=== PATIENT | male | born 1955 | race Caucasian/White ===

== ENCOUNTER → 2019-02-22 | Outpatient (CLI) | payer BC ==
[2019-02-22 17:29] LABS: Anisocytosis Slight; Basophils # (A) 0.1 k/uL (0-0.2); Basophils % (A) 2 %; Eosinophils # (A) 0.3 k/uL (0-0.7); Eosinophils % (A) 3 %; HCT 42.1 % (39.0-53.0); HGB 12.8 gm/dL (13.0-17.5); Hypochromasia Moderate; Lymphocytes # (A) 1.4 k/uL (1.0-4.8); Lymphocytes % (A) 16 %; MCH 22.5 pg (25.0-35.0); MCHC 30.5 g/dL (31.0-37.0); MCV 73.7 fL (80.0-100.0); Mean Platelet Volume 8.2; Microcytosis Moderate; Monocytes # (A) 0.6 k/uL (0-1.0); Monocytes % (A) 7 %; Neutrophils # (A) 6.2 k/uL (1.3-7.7); Neutrophils % (A) 71 %; Platelet Count 681 k/uL (150-450); Poikilocytosis Slight; RBC 5.71 m/uL (4.30-5.90); RDW 16.3 % (11.5-15.5); WBC 8.8 k/uL (3.8-10.6)
[2019-02-22 20:28] LABS: Erythrocyte Sedimentation Rate 8 mm/hr (0-15)
[2019-02-23 00:12] LABS: African American GFR (CKD) 83.5 (60.0-200.0); Albumin 4.4 g/dL (3.80-4.90); Albumin/Globulin Ratio 1.52 (1.60-3.17); BUN/Creat Ratio 15.45 Ratio (12.00-20.00); C Reactive Protein 0.4 mg/dL (0.0-0.8); Calcium 9.4 mg/dL (8.7-10.3); Globulin 2.9 g/dL (1.6-3.3); Potassium 4.3 mmol/L (3.5-5.5); Total Bilirubin 0.2 mg/dL (0.3-1.2); Total Protein 7.3 g/dL (6.2-8.2)
[2019-02-23 00:57] LABS: Rheumatoid Factor 89 IU/mL (0-15)
== END | disposition home or self-care (01) ==
LOC: LABWHC1 17:04
PROVIDERS: ATTEND Internal Medicine Rheumatology
DX: D47.3 Essential (hemorrhagic) thrombocythemia (principal); M35.8 Other specified systemic involvement of connective tissue; D47.1 Chronic myeloproliferative disease; D45 Polycythemia vera; R77.1 Abnormality of globulin; R76.8 Other specified abnormal immunological findings in serum; Z15.89 Genetic susceptibility to other disease; Z51.81 Encounter for therapeutic drug level monitoring; Z79.899 Other long term (current) drug therapy
CPT/HCPCS: 36415; 80053; 82784; 85025; 85652; 86140; 86160; 86235; 86431

== ENCOUNTER → 2019-03-30 | Outpatient (CLI) | payer BC ==
[2019-03-30 16:16] LABS: Anisocytosis Slight; HCT 46.4 % (39.0-53.0); HGB 14.3 gm/dL (13.0-17.5); Hypochromasia Marked; MCH 21.4 pg (25.0-35.0); MCHC 30.8 g/dL (31.0-37.0); MCV 69.5 fL (80.0-100.0); Mean Platelet Volume 7.6; Microcytosis Marked; Platelet Count 643 k/uL (150-450); Poikilocytosis Slight; RBC 6.67 m/uL (4.30-5.90); RDW 16.6 % (11.5-15.5); WBC 8.5 k/uL (3.8-10.6)
[2019-03-30 16:25] LABS: Potassium 4.8 mmol/L (3.5-5.1)
== END | disposition home or self-care (01) ==
LOC: LABPAT 15:31
PROVIDERS: ATTEND Internal Medicine Interventional Cardiology
DX: Z01.812 Encounter for preprocedural laboratory examination (principal); R06.02 Shortness of breath; R07.9 Chest pain, unspecified
CPT/HCPCS: 36415; 80051; 82565; 84520; 85027

== ENCOUNTER → 2019-04-02 | Day surgery (SDC) | payer BC ==
[2019-03-31 17:37] VITALS: BMI 28.8
[~2019-04-02] MED LIST: ALPRAZolam 0.25 MG TAB PO PRN; ASPIRIN 325 MG TAB PO ONE; HEPARIN SODIUM 1,000 UN/ML (10ML VL) IV ONE; IOPAMIDOL-370 125ML BTL INJ ONE; LIDOCAINE 1% INJ 10MG/ML (20 ML MDV) SQ ONE; MIDAZOLAM (PF) 2 MG/2 ML VIAL IV ONE; RX INFO: IV CONTRAST WAS GIVEN 1 EACH MISC MISCELLANE PRN; SODIUM CHLORIDE 0.9% 1,000 ML IV SCH; SODIUM CHLORIDE 0.9% 1,000 ML in EMPTY BAG 1 BAG IV ONE; VERAPAMIL SYRINGE (5 MG/10 ML) INTRAARTER ONE; fentaNYL (PF) 50 MCG/ML 2 ML AMP IVP ONE
[2019-04-02 06:57] VITALS: RESP 18; TEMP 98.3
--- NOTE | 2019-04-02 11:07 | CC ---
CARDIAC CATHETERIZATION REPORT DATE OF SERVICE: April 02, 2019 PERFORMING PHYSICIAN: Caesar Salvador MD, early childhood. PROCEDURE PERFORMED: 1. Selective right and left coronary angiogram. 2. Left heart catheterization. INDICATION: This is a pleasant 64-year-old gentleman with history of hypertension and dyslipidemia and family history of CAD, was experiencing chest discomfort with exertion concerning for severe artery disease. Because of that, heart catheterization was advised. APPROACH: Right radial artery. COMPLICATION: None. LEVEL OF SEDATION: Moderate with sedation length of 10 minutes. PROCEDURE DESCRIPTION: After obtaining an informed consent, the patient was brought to the cardiac lab director. The right radial artery was cannulated using micropuncture technique, the micropuncture wire passed easily then I placed a 6-Occitan sheath in the right radial artery. After that I gave the patient 6000 units of heparin IV and 2 mg of verapamil IA. Subsequently selective right and left coronary angiogram performed using JR4 and JL3.5 catheters. Left heart catheterization was performed using pigtail catheter. The procedure was completed without any complication. SELECTIVE CORONARY ANGIOGRAM: 1. The right coronary artery is a large caliber vessel and it is a dominant vessel. The RCA is angiographically normal it distally bifurcates into PDA and PLV branches, both appeared to be angiographically normal. 2. The left main is angiographically normal. It bifurcates into the left circumflex and left anterior descending artery. 3. The left circumflex is a large caliber vessel. It is a dominant vessel and appeared to be angiographically normal. 4. The LAD: The proximal LAD is normal and gives rise into a large diagonal branch which seems to be normal. The mid LAD has a lesion appeared to be in the range of 40% to 50% only. The LAD distally appeared to be normal. HEMODYNAMICS: The left ventricular end-diastolic pressure was about 10 mmHg without significant gradient across the aortic valve. CONCLUSION: Intermediate nonobstructive disease involving the mid LAD. POSTPROCEDURE MANAGEMENT: 1. Medical treatment. 2. Follow up with the patient. MMODL / IJN: [id number] /
[2019-04-02 13:22] VITALS: BP 117/71; PULSE 76
== END ==
LOC: CATHCVL 06:22
PROVIDERS: ATTEND Internal Medicine Interventional Cardiology
DX: I25.110 Atherosclerotic heart disease of native coronary artery with unstable angina pectoris (principal); I10 Essential (primary) hypertension; E78.5 Hyperlipidemia, unspecified; Z82.49 Family history of ischemic heart disease and other diseases of the circulatory system; Z79.899 Other long term (current) drug therapy
CPT/HCPCS: 93458; C1769; C1894; J2001; J3010; J1644; Q9967; J2250

== ENCOUNTER 2021-03-06 10:20 | Day surgery (SDC) | payer BC ==
[2021-03-02 08:51] VITALS: BMI 29.2
[2021-03-06] MEDS ORDERED: LACTATED RINGERS 1,000 ML IV ONE ×2 (10:44)
[2021-03-06] MEDS ORDERED: PROPOFOL 10 MG/ML 20 ML VIAL IV ONE (10:46)
--- NOTE | 2021-03-06 10:49 | P.GSHP ---
History of Present Illness H&P Date: 03/06/21 Chief Complaint: Colon cancer screening Patient here today for colonoscopy. Last colonoscopy over 20 years ago. No bowel complaints. No family history of colon cancer. Past Medical History Past Medical History: Myocardial Infarction (NH), Rheumatoid Arthritis (RA) Additional Past Medical History / Comment(s): LEUKEMIA,Lupus Last Myocardial Infarction Date:: yrs ago History of Any Multi-Drug Resistant Organisms: None Reported Past Surgical History: Hernia Repair Additional Past Surgical History / Comment(s): double hernia repair Past Anesthesia/Blood Transfusion Reactions: No Reported Reaction Smoking Status: Former smoker - Past Family History Father Family Medical History: Congestive Heart Failure (CHF), Diabetes Mellitus, Hyperlipidemia Mother Additional Family Medical History / Comment(s): PARKINSON Sister(s) Additional Family Medical History / Comment(s): PARKINSON Medications and Allergies Home Medications Medication Instructions Recorded Confirmed Type Aspirin EC [Ecotrin Low Dose] 81 mg PO DAILY 05/07/16 03/02/21 History Hydroxychloroquine Sulfate 200 mg PO DAILY 03/31/19 03/02/21 History [Plaquenil] Metoprolol Tartrate [Lopressor] 25 mg PO HS 03/31/19 03/02/21 History Cholecalciferol [Vitamin D3 (25 25 mcg PO DAILY 03/02/21 03/02/21 History Mcg = 1000 Iu)] Ruxolitinib Phosphate [Jakafi] 20 mg PO BID 03/02/21 03/02/21 History Allergies Allergy/AdvReac Type Severity Reaction Status Date / Time No Known Allergies Allergy Verified 03/06/21 10:36 Surgical - Exam Vital Signs Temp Pulse Resp BP Pulse Ox 98.0 F 104 H 18 137/82 95 03/06/21 10:35 03/06/21 10:35 03/06/21 10:35 03/06/21 10:35 03/06/21 10:35 Physical exam: General: Well-developed, well-nourished HEENT: Normocephalic, sclerae nonicteric Abdomen: Nontender, nondistended Extremities: No edema Neuro: Alert and oriented Assessment and Plan (1) Colon cancer screening Narrative/Plan: Will proceed with colonoscopy Current Visit: Yes Status: Acute Code(s): Z12.11 - ENCOUNTER FOR SCREENING FOR MALIGNANT NEOPLASM OF COLON SNOMED Code(s): 942336602
--- NOTE | 2021-03-06 11:00 | P.PCN ---
Date of Procedure: 03/06/21 Procedure(s) Performed: PREOPERATIVE DIAGNOSIS: Colon cancer screening POSTOPERATIVE DIAGNOSIS: Diverticulosis PROCEDURE: Colonoscopy ANESTHESIA: MAC SURGEON: Toro Crisostomo M.D. SPECIMENS: None ENDOSCOPIC PROCEDURE: The patient was placed on the endoscopy table in the left decubitus position. The Olympus colonoscope was inserted into the anus and passed under direct visualization to the base of the cecum. The appendiceal orifice was visualized. From that point the scope was slowly withdrawn inspe cting all surfaces carefully. There were no neoplastic inflammatory or polypoid lesions throughout the cecum, ascending, transverse, descending, sigmoid and rectum. There was moderate left-sided diverticulosis noted. Digital rectal examination was normal. The patient was taken to the recovery room in stable condition per anesthesia guidelines. RECOMMENDATIONS: Resume diet. Follow-up colonoscopy in 10 years.
[2021-03-06 11:03] VITALS: TEMP 98
[2021-03-06 11:05] VITALS: RESP 16
[2021-03-06 11:28] VITALS: BP 131/87; PULSE 90
== END 2021-03-06 11:39 | disposition home or self-care (01) ==
LOC: ORWHC2ENDO 10:20
PROVIDERS: ATTEND Surgery
DX: Z12.11 Encounter for screening for malignant neoplasm of colon (principal); K57.90 Diverticulosis of intestine, part unspecified, without perforation or abscess without bleeding; M06.9 Rheumatoid arthritis, unspecified; Z87.891 Personal history of nicotine dependence; J45.909 Unspecified asthma, uncomplicated; I25.2 Old myocardial infarction; Z79.82 Long term (current) use of aspirin; Z79.899 Other long term (current) drug therapy
CPT/HCPCS: J2704; G0121; 45378

== ENCOUNTER → 2022-11-13 | Outpatient (CLI) | payer BC ==
--- NOTE | 2022-11-13 11:02 | CTL ---
EXAMINATION TYPE: CT Low Dose Lung DATE OF EXAM ORDERED: 11/13/2022 HISTORY: Long-term tobacco use. Lung cancer screening CT DLP: 131.[address] CTDI: 3.6 mGy Automated exposure control for dose reduction was used. SCREENING VISIT: Baseline COMPARISON: None TECHNIQUE: Low dose computed tomography scan was performed through the chest at 1 mm thick sections a nd reconstructed images in multiple planes at 1 mm and [address] DIAGNOSTIC QUALITY: Satisfactory FINDINGS: LUNG NODULES: None. LUNGS: COPD: Severity: Moderate Fibrosis: Severity: Mild in the lower lungs Lymph nodes: None Other findings: None RIGHT PLEURAL SPACE: Effusion: None Calcification: None Thickening: None Pneumothorax: None LEFT PLEURAL SPACE: Effusion: None Calcification: None Thickening: None Pneumothorax: None HEART: Heart Size: Normal Coronary Calcification: Mild to moderate Pericardial Effusion: None OTHER FINDINGS: Upper abdomen: Visualized portion of Liver is low dense relative to the spleen consistent with mild d iffuse fatty infiltration. There is partial visualization of thin-walled cyst presumed exophytic from the upper pole right kidney on the last axial images. Bony thorax: None Supraclavicular region: None Other: None IMPRESSION: At least moderate emphysematous change without suspicious pulmonary nodule CT LUNG RAD AND CT CHEST RECOMMENDATION: Lung-Rad 1 Negative: Continue annual screening with LDCT in 12 months. S Modifier (other clinically significant findings): None
== END | disposition home or self-care (01) ==
LOC: RADCTMAIN 09:48
PROVIDERS: ATTEND Internal Medicine Hematology & Oncology
DX: Z12.2 Encounter for screening for malignant neoplasm of respiratory organs (principal); J43.9 Emphysema, unspecified; Z87.891 Personal history of nicotine dependence
CPT/HCPCS: 71271

== ENCOUNTER → 2024-10-28 | Outpatient (CLI) | payer MEDICARE, OTHER ==
--- NOTE | 2024-10-29 19:26 | PE ---
EXAMINATION TYPE: PET CT fusion skull to thigh DATE OF EXAM: 10/28/2024 CLINICAL INDICATION:Male, 69 years old with history of R91.1 LUNG NODULE; TECHNIQUE: Following the intravenous administration of 11.97 mCi of F-18 FDG, whole body images are performed from the skull base to the Mid thigh. Images are reviewed on the computer in the coronal, axial, and sagittal planes. Reconstructed rotating images are created on independent workstation an d reviewed on the computer. A non-contrast CT is performed in conjunction with the PET scan. Glucos e level 97 mg/dL CT DLP: 694 mGycm, Automated exposure control for dose reduction was used. COMPARISON: CT 10/13/2024, PET/CT None, MRI: None FINDINGS: Mediastinal SUV mean is 2.4. Hepatic parenchyma SUV mean is 2.5. SKULL BASE AND NECK: Superficial left parotid gland lesion measuring up to Max SUV 7.4 measuring 9 mm. CHEST, MEDIASTINUM, AND HILAR REGION: Right upper lobe pulmonary nodule measuring 10 mm Max SUV 4.8. ABDOMEN AND PELVIS: Left retroperitoneal lymph node at the level of kidney measuring 8 mm Max SUV 6.0. MUSCULOSKELETAL STRUCTURES: No suspicious radiotracer activity. OTHER CT: Atherosclerosis of the coronary arteries. Calcified lesions of aortic valve are mild. Bilat eral renal cortical cysts. Right renal cortical cyst with thin high density probable calcified septat ion. Scattered colonic diverticula. Right lateral bladder diverticulum. Post surgical changes in the inguinal canals bilaterally with clips present. Atherosclerosis of the arterial vasculature. Moderate to severe emphysema changes. Right upper lungr 10 mm pulmonary nodule with increased metabolic activ ity IMPRESSION: 1. Right upper lobe pulmonary nodule concerning for malignancy. No evidence for metastatic disease a t this time. 2. 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 Attention follow-up imaging. Cons ider ultrasound evaluation. 3. Retroperitoneal lymph node within normal limits for size however has elevated FDG activity and is concerning for malignancy until proven otherwise. [facility], , 10/29/2024 7:24 PM
== END | disposition home or self-care (01) ==
LOC: RADPETMAIN 06:28
PROVIDERS: ATTEND Internal Medicine Hematology & Oncology
DX: R91.1 Solitary pulmonary nodule (principal); N32.3 Diverticulum of bladder; K57.30 Diverticulosis of large intestine without perforation or abscess without bleeding; N28.1 Cyst of kidney, acquired; I25.10 Atherosclerotic heart disease of native coronary artery without angina pectoris
CPT/HCPCS: 78815; A9552

== ENCOUNTER → 2024-11-25 | Day surgery (SDC) | payer MEDICARE, OTHER ==
[2024-11-24 11:31] VITALS: BMI 27.9
[~2024-11-25] MED LIST changes: -ALPRAZolam 0.25 MG TAB PO PRN; -ASPIRIN 325 MG TAB PO ONE; -HEPARIN SODIUM 1,000 UN/ML (10ML VL) IV ONE; -IOPAMIDOL-370 125ML BTL INJ ONE; +LACTATED RINGERS 1,000 ML IV SCH; -LIDOCAINE 1% INJ 10MG/ML (20 ML MDV) SQ ONE; +LIDOCAINE 2% (PF) 20 MG/ML 5 ML VIAL ONE; -MIDAZOLAM (PF) 2 MG/2 ML VIAL IV ONE; +MIDAZOLAM 2 MG/2 ML VIAL ONE; +PHENYLEPHRINE 10 MG/ML VIAL ONE; +PROPOFOL 10 MG/ML 20 ML VIAL IV ONE; +ROCURONIUM 10 MG/ML (5 ML VIAL) IV ONE; -RX INFO: IV CONTRAST WAS GIVEN 1 EACH MISC MISCELLANE PRN; -SODIUM CHLORIDE 0.9% 1,000 ML IV SCH; -SODIUM CHLORIDE 0.9% 1,000 ML in EMPTY BAG 1 BAG IV ONE; +SUCCINYLCHOLINE CHLORIDE 200 MG/10 ML VIAL IV ONE; +SUGAMMADEX SODIUM 100 MG/ML SYR IV ONE; -VERAPAMIL SYRINGE (5 MG/10 ML) INTRAARTER ONE; -fentaNYL (PF) 50 MCG/ML 2 ML AMP IVP ONE; +fentaNYL (PF) 50 MCG/ML 2 ML AMP ONE
[2024-11-25 11:45] VITALS: TEMP 97.2
[2024-11-25] MEDS: IV FLUID CONTINUATION 1,000 ML IV ONE (12:08)
[2024-11-25] MEDS: ONDANSETRON 4 MG/2 ML VIAL IVP PRN (12:10)
[2024-11-25] MEDS: LACTATED RINGERS 1,000 ML IV SCH (12:10)
[2024-11-25] MEDS: DEXAMETHASONE SOD PHOSPHATE 4 MG/ML 1 ML VIAL IVP STA (12:11)
--- NOTE | 2024-11-25 12:52 | CT ---
EXAMINATION TYPE: CT Chest wo ION protocol DATE OF EXAM: 11/25/2024 COMPARISON: PET CT October 28, 2024 CLINICAL INDICATION: Male, 69 years old with history of R91.1 Solitary pulmonary nodule, TECHNIQUE: CT scan of the thorax is performed without IV contrast. CT DLP: 506 mGycm. Automated Exposure Control for Dose Reduction was Utilized. FINDINGS: Exam is from bronchoscopy planning and not for diagnostic purposes. Underlying emphysematous change i s redemonstrated. Small 1.3 cm hypermetabolic spiculated nodule posterior aspect right upper lobe is redemonstrated series 5 image 103. At least moderate coronary artery calcification is redemonstrated. A partially exophytic large thin-walled cyst in the upper pole of the right kidney and an additional large thin-walled cyst anteriorly in the left kidney are partially imaged. IMPRESSION: As above [facility], , 11/25/2024 12:50 PM
--- NOTE | 2024-11-25 15:07 | FL ---
EXAMINATION TYPE: FL bronchoscopy Intraoperative/procedural fluoroscopic services were provided. CLINICAL INDICATION:Male, 69 years old with history of BRONCH WITH ION ROBOT; , [facility] FINDINGS: Multiple fluoroscopic images for right upper lobe bronchoscopy with biopsy. No radiographic evidence for complication. Total fluoroscopy time is 4 minutes 28.4 seconds. DAP: 12.494 Gycm2 Please see the operative/procedural note for further details. [facility], , 11/25/2024 3:04 PM
[2024-11-25 15:11] VITALS: RESP 18
--- NOTE | 2024-11-25 15:32 | XR ---
EXAMINATION TYPE: XR chest 1V portable DATE OF EXAM: 11/25/2024 3:26 PM COMPARISON: Chest radiographs from 11/05/2024, CT chest 11/25/2024, fluoroscopic bronchoscopy 11/25/2024 TECHNIQUE: XR chest 1V portable Portable AP radiograph of the chest. CLINICAL INDICATION:Male, 69 years old with history of bronch; FINDINGS: Lungs/Pleura: There is no evidence of pleural effusion or pneumothorax. Right midlung patchy opacitie s. Pulmonary vascularity: Unremarkable. Heart/mediastinum: Cardiomediastinal silhouette is unremarkable. Musculoskeletal: No acute osseous pathology. IMPRESSION: Right mid lung patchy opacities likely representing post biopsy changes. No pneumothorax. [facility], , 11/25/2024 3:29 PM
--- NOTE | 2024-11-25 15:58 | P.PCN ---
Date of Procedure: 11/25/24 Operative Findings: Preoperative Diagnosis: Right upper lobe pulmonary nodule, 10 mm, PET Avid Postoperative Diagnosis: Right lower upper pulmonary nodule Procedure(s) Performed: Flexible bronchoscopy Robotic-assisted bronchoscopy and addition to radial ultrasound evaluation of the right upper lobe pulmonary nodule Robotic-assisted transbronchial needle aspirate, transbronchial biopsies in addition to a bronchioloalveolar lavage Anesthesia: ELFEGO Surgeon: Dano Jensen Estimated Blood Loss (ml): 0 Pathology: other Condition: stable Disposition: same day Operative Findings: A physical exam was performed. Informed consent was obtained from the patient after explaining all the risks (pneumothorax, life threatening bleeding, infection and adverse effects due to medications), benefits and alternatives to the procedure which the patient appeared to understand and so stated. The patient was connected to the monitoring devices. General anesthesia was induced and the patient was intubated by anesthesia. A final timeout was performed and the procedure confirmed by the attending staff bronchoscopist. The bronchoscope was inserted and the airway examined. Examination was essentially within normal limits. No significant abnormalities noted. The flexible bronchoscope was removed and the robotic bronchoscope was inserted. Registration was completed. I next guided the robotic bronchoscope using the navigation system into the right upper lobe apical segment. Once in proper position, the bronchoscope was frozen. The radial EBUS probe was placed through the bronchoscope and confirmed abnormal u/s images vs normal lung. A needle was placed through the working channel and under fluoroscopic guidance, we sampled the area thought to have the nodule twice. We then used a cloud biopsy pattern with ultrasound confirmation for 2 additional passes with the needle. U/S evaluation was then used to reconfirm location. Forceps were next introduced through working channel and extended the appropriate distance and 2 transbronchial biopsies were performed using fluoroscopic guidance. The u/s probe was then reinserted to confirm location. When confirmed this process was repeated for a total of 2 transbronchial biopsies. Rapid onsite evaluation of the samples was done by pathology and the samples were adequate. 40ml of saline was then instilled into the area of the lesion. The robotic bronchoscope was removed and the airway inspected with a flexible bronchoscope and 10 ml of effluent from the BAL was collected. The aspirate was bloody and ultimately declotted and based on that, the sample was discarded. FINDINGS: 1.The airways appeared normal 2 Successful navigation, ultrasonographic identification, and biopsies of right upper lobe pulmonary nodule 3.The the radial ultrasound view was weak/concentric RECOMMENDATIONS: Await pathology and cytology results The referring physician will be alerted to the results when available. The patient was advised to follow up with the referring physician with the biopsy results Patient will be called with results.
[2024-11-25 16:16] VITALS: BP 136/88; PULSE 89
== END ==
LOC: ORWHC2ENDO 11:00
PROVIDERS: ATTEND Internal Medicine Critical Care Medicine
DX: J98.4 Other disorders of lung (principal); E78.5 Hyperlipidemia, unspecified; I25.2 Old myocardial infarction; J44.9 Chronic obstructive pulmonary disease, unspecified; N18.30 Chronic kidney disease, stage 3 unspecified; D45 Polycythemia vera; M06.9 Rheumatoid arthritis, unspecified; Z79.82 Long term (current) use of aspirin; Z79.622 Long term (current) use of Janus kinase inhibitor; Z79.899 Other long term (current) drug therapy; Z87.891 Personal history of nicotine dependence
CPT/HCPCS: 31628; 31629; 31624; 31627; 31654; 87798 ×3; 87496; 87498; 87529; 88108; 88305; 88173; 87502; 87634; 87070; 87205; 87116; 87102; 87206; 87635; 71045; 71250; S2900; J2250; J0330; J1100; J2405; J3010; J2704; J2003; J2371

== ENCOUNTER → 2025-01-11 | Outpatient (CLI) | payer MEDICARE, OTHER ==
--- NOTE | 2025-01-11 15:22 | US ---
EXAMINATION TYPE: US carotid duplex BILAT DATE OF EXAM: 01/11/2025 COMPARISON: NONE CLINICAL INDICATION: Male, 69 years old with history of I65.23 CAROTID STENOSIS BILATERAL; dizziness Additional History: R42* Dizziness TECHNIQUE: Grayscale, color Doppler and spectral Doppler evaluation of the bilateral carotid systems and vertebral arteries. Indirect Doppler criteria was utilized. FINDINGS: EXAM MEASUREMENTS: RIGHT: Peak Systolic Velocity (PSV) cm/sec ----- Right CCA: 56.5 ----- Right ICA: 76.2 ----- Right ECA: 88.1 ICA/CCA ratio: 1.35 RIGHT: End Diastole cm/sec ----- Right CCA: 18.4 ----- Right ICA: 29.8 ----- Right ECA: 18.8 LEFT: Peak Systolic Velocity (PSV) cm/sec ----- Left CCA: 71.2 ----- Left ICA: 72.5 ----- Left ECA: 141 ICA/CCA ratio: 1.02 LEFT: End Diastole cm/sec ----- Left CCA: 18.4 ----- Left ICA: 30.3 ----- Left ECA: 19.0 VERTEBRALS (direction of flow): Right Vertebral: Antegrade Left Vertebral: Antegrade [employer] COORDINATOR NOTES: Mild plaque bilateral bifurcations. Mildly increased velocities left ECA Color Doppler imaging shows patency with blood flow throughout the carotid artery. Spectral waveforms are within normal limits. IMPRESSION: Right: Less than 50% stenosis of the carotid bifurcation. Left: Less than 50% stenosis of the carotid bifurcation. Criteria for Assigning % of Stenosis / Diameter reduction (Estimation based on the indirect measurements of the internal carotid artery velocities (ICA PSV). 1. Normal (no stenosis)=ICA PSV < 180 cm/s: ratio < 2.0: ICA EDV<40 cm/s. 2. Less than 50% stenosis=ICA PSV < 180 cm/s: ratio < 2.0: ICA EDV<40 cm/s. 3. 50 to 69% stenosis=ICA PSV of 180 to 230 cm/s: ration 2.0 ? 4.0: ICA EDV 40-100 cm/s. PSV 125-180 cm/sec and ICA/CCA PSV Ratio ? 2.0 is also consistent with 50-69% stenosis 4. Greater than 70% stenosis to near occlusion= ICA PSV > 230 cm/s: ratio > 4.0: ICA EDV > 100 cm/s. 5. Near occlusion= ICA PSV velocities may be low or undetectable: variable ratio and ICA EDV. 6. Total occlusion=unable to detect flow. [facility], , 01/11/2025 3:20 PM
--- NOTE | 2025-01-12 13:19 | CA ---
Transthoracic Echo Report Name: Abel Drummond Age: 69 Gender: M : 1955 Exam Date: 01/11/2025 14:28 Exam Location: [facility] Ht (in): 70 Wt (lb): 198 Ordering Physician: Layton Razo MD Attending/Referring Phys: Jeanie Ingram MD Pantry Cook Nelson Kohler RDCS Procedure CPT: Indications: I65.23 CAROTID STENOSIS,BILAT I25.10 ATHSCL HEART Cardiac Hx: Technical Quality: Good Contrast 1: Total Dose (mL): Contrast 2: Total Dose (mL): MEASUREMENTS (Male / Female) Normal Values 2D ECHO LV Diastolic Diameter PLAX 5.5 cm 4.2 - 5.9 / 3.9 - 5.3 cm LV Systolic Diameter PLAX 4.0 cm IVS Diastolic Thickness 0.9 cm 0.6 - 1.0 / 0.6 - 0.9 cm LVPW Diastolic Thickness 0.9 cm 0.6 - 1.0 / 0.6 - 0.9 cm LV Relative Wall Thickness 0.3 LVOT Diameter 2.5 cm LV Diastolic Volume MOD BP 93.7 cm??? 67 - 155 / 56 - 104 cm??? LV Systolic Volume MOD BP 49.8 cm??? 22 - 58 / 19 - 49 cm??? LV Ejection Fraction MOD BP 46.9 % >= 55 % LV Cardiac Index MOD BP 1549.5 cm???/min???m??? LV Diastolic Volume MOD 4C 87.6 cm??? LV Systolic Volume MOD 4C 42.8 cm??? LV Ejection Fraction MOD 4C 51.1 % LV Cardiac Index MOD 4C 1580.6 cm???/min???m??? LV Diastolic Length 4C 8.5 cm LV Systolic Length 4C 7.2 cm LV Diastolic Volume MOD 2C 98.1 cm??? LV Systolic Volume MOD 2C 55.4 cm??? LV Ejection Fraction MOD 2C 43.5 % LV Cardiac Index MOD 2C 1507.2 cm???/min???m??? LV Diastolic Length 2C 8.8 cm LV Systolic Length 2C 7.3 cm LA Volume 31.1 cm??? 18 - 58 / 22 - 52 cm??? LA Volume Index 14.7 cm???/m??? 16 - 28 cm???/m??? DOPPLER MV Area PHT 3.5 cm??? Mitral E Point Velocity 41.8 cm/s Mitral A Point Velocity 92.3 cm/s Mitral E to A Ratio 0.5 MV Deceleration Time 217.3 ms TR Peak Velocity 225.9 cm/s TR Peak Gradient 20.4 mmHg Right Atrial Pressure 5.0 mmHg Pulmonary Artery Systolic Pressu 25.4 mmHg Right Ventricular Systolic Press 25.4 mmHg FINDINGS Left Ventricle Left ventricular ejection fraction is estimated at 50-55%. Fairly well- preserved left ventricular ejection fraction. No obvious regional wall motion abnormalities. Left ventricular wall thickness normal. Right Ventricle Mild right ventricular dilatation. Right ventricular systolic pressure within normal limits. Right Atrium Normal right atrial size. Left Atrium Normal left atrial size. Mitral Valve Structurally normal mitral valve. No mitral stenosis. No mitral regurgitation. Aortic Valve Trileaflet aortic valve. Aortic valve sclerosis. Diffuse thickening (sclerosis) of the aortic valve cusps without reduced excursion. No aortic stenosis. No aortic regurgitation. Tricuspid Valve Structurally normal tricuspid valve. No tricuspid stenosis. Trace tricuspid regurgitation. Pulmonic Valve Structurally normal pulmonic valve. No pulmonic stenosis. Trace pulmonic regurgitation. Pericardium No pericardial effusion. Aorta Mild aortic dilatation at the level of the sinuses of valsalva (root). CONCLUSIONS Technically difficult study. Left ventricle size is normal contractility is fairly well-preserved. No pulmonary hypertension. Aortic valve sclerosis without much restriction. Minimal mitral and tricuspid regurgitation no pericardial effusion Previewed by: Dr. Gamaliel Vann MD (Electronically Signed) Final Date: 12 Jan 2025 13:19
== END | disposition home or self-care (01) ==
LOC: RADUSWWP 13:59
PROVIDERS: ATTEND Internal Medicine
DX: I65.23 Occlusion and stenosis of bilateral carotid arteries (principal); I25.10 Atherosclerotic heart disease of native coronary artery without angina pectoris; I08.1 Rheumatic disorders of both mitral and tricuspid valves; I35.8 Other nonrheumatic aortic valve disorders
CPT/HCPCS: 93306; 93880

== ENCOUNTER → 2025-03-25 | Outpatient (CLI) | payer MEDICARE, OTHER ==
--- NOTE | 2025-03-26 17:17 | PE ---
EXAMINATION TYPE: PET CT fusion skull to thigh DATE OF EXAM: 03/25/2025 CLINICAL INDICATION:Male, 70 years old with history of R91.1 SOLITARY LUNG NODULE; TECHNIQUE: Following the intravenous administration of 10.95 mCi of F-18 FDG, whole body images are performed from the skull base to the midthigh. Images are reviewed on the computer in the coronal, axial, and sagittal planes. Reconstructed rotating images are created on independent workstation and reviewed on the computer. A non-contrast CT is performed in conjunction with the PET scan. Glucose level 91 mg/dL CT DLP: 864 mGycm, Automated exposure control for dose reduction was used. COMPARISON: CT 11/25/2024, 10/13/2024, 11/13/2022 PET/CT 10/28/2024, MRI: None FINDINGS: Mediastinal SUV mean is 2.4. Hepatic parenchyma SUV mean is 2.7. SKULL BASE AND NECK: No suspicious radiotracer activity. Previously seen superficial left parotid gland FDG avid lesion is no longer visualized. CHEST, MEDIASTINUM, AND HILAR REGION: Mildly increased size of posterior upper lobe irregular pulmonary opacity measuring 2.4 x 1.4 cm, pre viously measured 1.5 x 1.0 cm. Demonstrates FDG activity with a maximum SUV of 10.4, previously 6.0. ABDOMEN AND PELVIS: No suspicious radiotracer activity. MUSCULOSKELETAL STRUCTURES: No suspicious radiotracer activity. OTHER CT: Probable mucous retention cyst within the inferior left maxillary sinus. Mild right and mod erate left carotid bifurcation calcifications. Atherosclerotic calcification of the aorta and its bra nches. Mild coronary arterial calcifications. Small aortic valvular calcifications. Bilateral simple- appearing cysts redemonstrated with a right renal lower pole cyst demonstrating thin calcified septat ion. Largest involving the left kidney measures up to 7.2 cm. Largest involving the superior pole of the right kidney measures up to 7.8 cm. Small hiatal hernia. Tiny fat filled hernia. Distal colonic d iverticulosis without evidence for acute diverticulitis. Right lateral urinary bladder diverticulum r edemonstrated. Postsurgical changes of the bilateral inguinal regions from hernia repair. 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 Moderate to severe emphysematous cerrato ges. IMPRESSION: Mildly increased size of FDG avid irregular right upper lobe pulmonary opacity. This raises concern f or primary lung malignancy. No other suspicious FDG activity to suggest metastasis. [facility], , 03/26/2025 5:14 PM
== END | disposition home or self-care (01) ==
LOC: RADPETMAIN 11:51
PROVIDERS: ATTEND Internal Medicine Hematology & Oncology
DX: R91.1 Solitary pulmonary nodule (principal); R91.8 Other nonspecific abnormal finding of lung field
CPT/HCPCS: 78815; A9552